=== PATIENT | female | born 1945 | race Caucasian/White ===

== ENCOUNTER 2023-08-19 20:14 | Emergency (ER) | payer OTHER ==
[~2023-08-19] VITALS: Ht 167.6 cm; Wt 77.1 kg
[2023-08-19] MEDS ORDERED: ASPIRIN CHEWABL81 MG PO (20:20)
[2023-08-19] MEDS ORDERED: LIPITOR80 MG PO (20:20)
[2023-08-19] MEDS ORDERED: BUSPIRONE10 MG PO (20:21)
[2023-08-19] MEDS ORDERED: LAMICTAL100 MG PO (20:21)
[2023-08-19] MEDS ORDERED: Clopidogrel75 MG PO (20:21)
[2023-08-19] MEDS ORDERED: VENLAFAXINE75 M1 PO (20:22)
[2023-08-19] MEDS ORDERED: TRAZODONE100 MG PO (20:22)
== END 2023-08-19 22:45 ==
LOC: ED 20:14
DX: R51.9 Headache, unspecified (principal); I63.9 Cerebral infarction, unspecified; I10 Essential (primary) hypertension; R20.0 Anesthesia of skin; Z88.8 Allergy status to other drugs, medicaments and biological substances

== ENCOUNTER 2023-08-26 15:46 | Emergency (ER) | payer OTHER ==
[~2023-08-26] VITALS: Ht 160 cm; Wt 61.2 kg
[~2023-08-26 15:46] MED LIST: ASPIRIN CHEWABL81 MG PO; BUSPIRONE10 MG PO; Clopidogrel75 MG PO; LAMICTAL100 MG PO; LIPITOR80 MG PO; TRAZODONE100 MG PO; VENLAFAXINE75 M1 PO
[2023-08-26] MEDS ORDERED: ZESTRIL10 MG PO (16:18)
[2023-08-26 16:21] LABS: BASO # 0.1 10*3/uL (0.0-0.1); BASO % 1.6 % (0.0-1.0); EOS # 0.1 10*3/uL (0.0-0.4); EOS % 2.5 % (1.0-4.0); HEMATOCRIT 39.3 % (37.0-47.0); LYMPH # 1.5 10*3/uL (1.3-4.4); LYMPH % 31.5 % (27.0-41.0); MEAN CELL VOLUME 92.7 fl (81.0-99.0); MEAN CORPUSCULAR HGB 29.7 pg (27.0-31.0); MEAN CORPUSCULAR HGB CONC 32.1 g/dl (33.0-37.0); MEAN PLATELET VOLUME 10.1 fl (9.6-12.3); MONO # 0.4 10*3/uL (0.1-1.0); MONO % 7.8 % (3.0-9.0); NEUT # 2.8 10*3/uL (2.3-7.9); NEUT % 56.2 % (47.0-73.0); PLATELET COUNT AUTOMATED 261 10*3/uL (130-400); RED BLOOD COUNT 4.24 10*6/uL (4.10-5.10); RED CELL DISTRI WIDTH 13.2 % (0-14.5); WHITE BLOOD COUNT 4.9 10*3/uL (4.8-10.8)
[2023-08-26 16:41] LABS: BUN 10 mg/dl (9-23); CHLORIDE 107 mmol/L (98-107); POTASSIUM 3.5 mmol/L (3.4-5.1)
[2023-08-26] MEDS ORDERED: NORVASC5 MG PO (16:52)
[2023-08-26] MEDS ORDERED: amLODIPine besylate 5 MG TAB PO ONE (17:05)
== END 2023-08-26 16:57 ==
LOC: ED 15:46
PROVIDERS: Physician Assistant Medical
DX: I10 Essential (primary) hypertension (principal); Z88.1 Allergy status to other antibiotic agents; Z79.82 Long term (current) use of aspirin; Z79.899 Other long term (current) drug therapy; Z86.73 Personal history of transient ischemic attack (TIA), and cerebral infarction without residual deficits

== ENCOUNTER 2025-03-25 14:55 | Emergency (ER) | payer OTHER ==
[~2025-03-25] VITALS: Ht 160 cm; Wt 111.1 kg
[~2025-03-25 14:55] MED LIST changes: +NORVASC5 MG PO; +ZESTRIL10 MG PO
[2025-03-25] MEDS ORDERED: Ondansetron Hydrochloride 4 MG/2 ML VIAL IV ONE (15:15)
[2025-03-25] MEDS ORDERED: SODIUM CHLORIDE 0.9% 1,000 ML IV ONE (15:15)
[2025-03-25 15:32] LABS: BASO # 0.1 10*3/uL (0.0-0.1); BASO % 0.7 % (0.0-1.0); EOS # 0.1 10*3/uL (0.0-0.4); EOS % 1.2 % (1.0-4.0); MEAN CELL VOLUME 85.1 fl (81.0-99.0); MEAN CORPUSCULAR HGB 29.9 pg (27.0-31.0); MEAN PLATELET VOLUME 9.0 fl (9.6-12.3); MONO # 0.5 10*3/uL (0.1-1.0); MONO % 7.3 % (3.0-9.0); NEUT # 5.4 10*3/uL (2.3-7.9); NEUT % 74.8 % (47.0-73.0); NUCLEATED RED BLOOD CELL 0.0 % (0.0-0.0); NUCLEATED RED BLOOD CELL 0.0 10*3/uL (0.0-0.0); PLATELET COUNT AUTOMATED 311 10*3/uL (130-400); RED CELL DISTRI WIDTH 11.9 % (0-14.5)
[2025-03-25] MEDS ORDERED: CARVEDILOL12.5 MG PO (15:37)
[2025-03-25] MEDS ORDERED: [UNRECOGNIZED DRUG - OTHER] PO (15:38)
[2025-03-25 15:50] LABS: BUN 12 mg/dl (9-23)
[2025-03-25] MEDS ORDERED: FAMOTIDINE 20 MG TAB PO ONE (16:05)
[2025-03-25] MEDS ORDERED: MG-AL HYDROXIDE/SIMETICONE 30 ML UDC PO STA (17:47)
[2025-03-25] MEDS ORDERED: Dicyclomine Hydrochloride 20 MG/10 ML OSYR PO STA (17:47)
[2025-03-25] MEDS ORDERED: POTASSIUM CHLORIDE 20 MEQ TAB PO ONE (19:45)
[2025-03-25] MEDS ORDERED: KLOR-CON M2020 ME1 PO (19:47)
[2025-03-25] MEDS ORDERED: PEPCID40 MG PO (19:47)
[2025-03-25] MEDS ORDERED: TRAMADOL HCL50 MG PO (19:50)
== END 2025-03-25 20:09 | disposition home or self-care (01) ==
LOC: ED 14:55
PROVIDERS: Nurse Practitioner Family
DX: S16.1XXA Strain of muscle, fascia and tendon at neck level, initial encounter (principal); R51.9 Headache, unspecified; E87.6 Hypokalemia; I10 Essential (primary) hypertension; F32.A Depression, unspecified; F41.9 Anxiety disorder, unspecified; E78.5 Hyperlipidemia, unspecified; Z86.73 Personal history of transient ischemic attack (TIA), and cerebral infarction without residual deficits; Z88.1 Allergy status to other antibiotic agents; Z79.899 Other long term (current) drug therapy; Z79.82 Long term (current) use of aspirin; X58.XXXA Exposure to other specified factors, initial encounter; Y93.89 Activity, other specified; Y92.89 Other specified places as the place of occurrence of the external cause; Y99.8 Other external cause status